=== PATIENT | male | born 1990 | race Caucasian/White ===

== ENCOUNTER → 2018-01-17 | Outpatient (CLI) | payer OTHER ==
[~2018-01-17] MED LIST: None per pt
[2018-01-17 12:06] LABS: BASOPHILS # (AUTO) 0.04 x10^3/uL (0-0.1); BASOPHILS % (AUTO) 1 % (0-1); EOSINOPHILS # (AUTO) 0.11 x10^3/uL (0-0.4); EOSINOPHILS % (AUTO) 1 % (1-7); LYMPHOCYTES % (AUTO) 30 % (22-44); MD NO; MEAN CORPUSCULAR HEMOGLOBIN 31.5 pg (27.5-34.5); MEAN CORPUSCULAR HGB CONC 34.7 g/dL (33.2-36.2); MEAN CORPUSCULAR VOLUME 90.7 fL (81-97); MEAN PLATELET VOLUME 7.1 fL (7.4-10.4); MONOCYTES # (AUTO) 0.74 x10^3/uL (0.2-0.8); MONOCYTES % (AUTO) 8 % (2-9); NEUTROPHILS # (AUTO) 5.78 x10^3/uL (1.8-6.8); NEUTROPHILS % (AUTO) 61 % (42-75); PLATELET COUNT 240 x10^3/uL (130-400); RED BLOOD COUNT 5.23 x10^6/uL (4.38-5.82); RED CELL DISTRIBUTION WIDTH 12.6 % (9.4-14.8)
[2018-01-17 12:11] LABS: MICROSCOPIC AUTO
[2018-01-17 12:16] LABS: CULTURE INDICATED? NO
[2018-01-17 12:17] LABS: INTERNATIONAL NORMALIZED RATIO 0.99 (0.93-1.1); PROTHROMBIN TIME 10.2 Seconds (9.6-11.5)
[2018-01-17 12:41] LABS: ALANINE AMINOTRANSFERASE 23 U/L (12-78); ALBUMIN 4.3 g/dL (3.4-5.0); ANION GAP 4 mmol/L (5-15); CALCIUM 9.4 mg/dL (8.5-10.1); CHLORIDE 107 mmol/L (98-107)
[2018-01-17 12:44] LABS: ALKALINE PHOSPHATASE 48 U/L (45-117); BILIRUBIN,TOTAL 0.4 mg/dL (0.2-1.0); CREATININE 1.23 mg/dL (0.7-1.3)
== END | disposition home or self-care (01) ==
LOC: STAR 11:18
PROVIDERS: ATTEND Orthopaedic Surgery Orthopaedic Surgery of the Spine
DX: Z01.818 Encounter for other preprocedural examination (principal); R00.1 Bradycardia, unspecified; M51.27 Other intervertebral disc displacement, lumbosacral region
CPT/HCPCS: 36415; 80053; 81001; 85025; 85610; 85730; 93005

== ENCOUNTER 2018-01-22 08:06 | Day surgery (SDC) | payer OTHER ==
[~2018-01-22] VITALS: Ht 172.7 cm; Wt 65.9 kg
[2018-01-22 08:40] VITALS: BP 126/82
[2018-01-22] MEDS ORDERED: LACTATED RINGERS 1,000 ML IV SCH (08:43)
[2018-01-22] MEDS ORDERED: FENTANYL PF 250 MCG/5ML ONE (09:17)
[2018-01-22] MEDS ORDERED: MIDAZOLAM 1 MG/ML, 2ML ONE (09:17)
[2018-01-22] MEDS ORDERED: ACETAMINOPHEN 500 MG TABLET ONE (09:32)
[2018-01-22] MEDS ORDERED: GABAPENTIN 300 MG CAPSULE ONE (09:32)
[2018-01-22] MEDS ORDERED: VANCOMYCIN 1,000 MG ONE (09:44)
[2018-01-22] MEDS ORDERED: BUPIVACAINE/PF-EPI 0.25% 1:200K ONE (09:44)
[2018-01-22] MEDS ORDERED: THROMBIN 5,000 UNIT VIAL TP ONE (09:44)
[2018-01-22] MEDS ORDERED: LIDOCAINE/PF 0.5% ,50ML ONE (09:44)
[2018-01-22] MEDS ORDERED: EPINEPHRINE 1 MG/ML, 1ML ONE (09:45)
[2018-01-22] MEDS ORDERED: ONDANSETRON 2MG/ML, 2ML ONE (10:00)
[2018-01-22] MEDS ORDERED: DEXAMETHASONE 4 MG/ML, 1ML ONE (10:00)
[2018-01-22] MEDS ORDERED: NEOSTIGMINE 1 MG/ML, 10ML ONE (10:00)
[2018-01-22] MEDS ORDERED: PROPOFOL 10 MG/ML, 20ML ONE (10:00)
[2018-01-22] MEDS ORDERED: CEFAZOLIN 1,000 MG ONE (10:00)
[2018-01-22] MEDS ORDERED: GLYCOPYRROLATE 0.2MG/1ML, 5ML ONE (10:00)
[2018-01-22] MEDS ORDERED: ROCURONIUM 10 MG/ML,10ML ONE (10:00)
[2018-01-22] MEDS ORDERED: MEPERIDINE/PF 50 MG/ML ONE ×2 (11:29→11:37)
[2018-01-22] MEDS ORDERED: PROMETHAZINE 25 MG/ML, 1ML IV PRN (11:30)
[2018-01-22] MEDS ORDERED: OXYcodone 5 MG/5 ML ORAL.SOL UDC PO PRN (11:30)
[2018-01-22] MEDS ORDERED: LABETALOL 5MG/ML, 20ML IV PRN (11:30)
[2018-01-22] MEDS ORDERED: HYDROmorphone 1 MG/ML, 1ML IV PRN (11:30)
[2018-01-22] MEDS ORDERED: hydrALAzine 20 MG/ML, 1ML IV PRN (11:30)
[2018-01-22] MEDS ORDERED: LORazepam 2 MG/ML, 1ML IVPush PRN (11:30)
[2018-01-22] MEDS ORDERED: MEPERIDINE/PF 25MG/0.5ML IVPush PRN (11:30)
[2018-01-22] MEDS ORDERED: ALBUTEROL SULFATE 2.5 MG/3 ML NPPB PRN (11:30)
[2018-01-22] MEDS ORDERED: OXYcodone 5 MG/5 ML ORAL.SOL UDC ONE (11:37)
[2018-01-22] MEDS ORDERED: FENTANYL PF 100 MCG/2ML ONE (11:37)
[2018-01-22] MEDS: FENTANYL PF 100 MCG/2ML IV PRN ×3 (11:40→12:14)
[2018-01-22] MEDS ORDERED: DIPHENHYDRAMINE 50 MG/ML, 1ML ONE (11:51)
[2018-01-22] MEDS ORDERED: DIPHENHYDRAMINE 50 MG/ML, 1ML IVPush ONE (12:00)
== END 2018-01-22 15:15 | disposition home or self-care (01) ==
LOC: OR 08:06
PROVIDERS: ATTEND Orthopaedic Surgery Orthopaedic Surgery of the Spine
DX: M51.16 Intervertebral disc disorders with radiculopathy, lumbar region (principal)
CPT/HCPCS: 63030; 72100; J0171; J0690; J1100; J1200; J2001; J2175; J2250; J2405; J2704; J2710; J3010; J3370; J3490; J7120